=== PATIENT | male | born 1960 | race Two or more races ===

== ENCOUNTER 2019-12-05 05:58 | Day surgery (SDC) | payer OTHER, SELFPAY ==
[~2019-12-05] VITALS: Ht 177.8 cm; Wt 70.8 kg
[2019-12-05] MEDS ORDERED: MIDAZOLAM 2 MG/2 ML VIAL ONE (07:24)
[2019-12-05] MEDS ORDERED: diphenhydrAMINE 50 MG/ML VIAL ONE (07:24)
[2019-12-05] MEDS ORDERED: fentaNYL citrate 0.05 MG/ML VIAL ONE (07:24)
[2019-12-05] MEDS ORDERED: LIDOCAINE 2% 100 MG/5 ML UJET TP ONE (07:25)
[2019-12-05] MEDS ORDERED: MIDAZOLAM 2 MG/2 ML VIAL IVP ONE (08:15)
[2019-12-05] MEDS ORDERED: diphenhydrAMINE 50 MG/ML VIAL IVP ONE (08:15)
[2019-12-05] MEDS ORDERED: fentaNYL citrate 0.05 MG/ML VIAL IVP ONE (08:15)
== END 2019-12-05 08:50 | disposition home or self-care (01) ==
LOC: MDS 05:58 → MFCC 06:05 → MDS 08:50
PROVIDERS: ATTEND Internal Medicine Gastroenterology
DX: R63.4 Abnormal weight loss (principal); K63.5 Polyp of colon; K29.70 Gastritis, unspecified, without bleeding; K52.9 Noninfective gastroenteritis and colitis, unspecified; K44.9 Diaphragmatic hernia without obstruction or gangrene; Z11.59 Encounter for screening for other viral diseases
CPT/HCPCS: 43239; 45380; 45385; J1200; J2250; J3010; U0003